=== PATIENT | female | born 1970 | race Caucasian/White ===

== ENCOUNTER 2017-09-16 13:11 | Emergency (ER) | payer MEDICAID, OTHER ==
[~2017-09-16] VITALS: Ht 162.6 cm; Wt 72.7 kg
[2017-09-16] MEDS ORDERED: LIDOCAINE HCL 1% 10 ML VIAL INJ ONE (19:30)
[2017-09-16] MEDS ORDERED: BUPIVACAINE HCL/PF 0.25% 10 ML VIAL INJ ONE (19:30)
[2017-09-16 19:54] VITALS: BP 112/66
[2017-09-16] MEDS ORDERED: POVIDONE-IODINE 10% 15 ML SOLUTION UD TP ONE (20:15)
== END 2017-09-16 20:39 | disposition home or self-care (01) ==
LOC: EMS 13:17
DX: L03.031 Cellulitis of right toe (principal); Z88.2 Allergy status to sulfonamides
CPT/HCPCS: 10060; 99283; J3490 ×2